=== PATIENT | female | born 1985 | race Caucasian/White ===

== ENCOUNTER 2017-08-01 00:21 | Emergency (ER) | payer OTHER ==
[~2017-08-01] VITALS: Ht 175.3 cm; Wt 111.1 kg
[2017-08-01 00:28] VITALS: BP 154/94
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
[2017-08-01] MEDS ORDERED: LIDOCAINE MPF 1% - **ER/OR** 10 MG/ML VIAL INJ ONE (01:55)
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
[2017-08-01] MEDS ORDERED: KETOROLAC 60 MG/2 ML VIAL IM ONE (02:40)
[2017-08-01 03:14] VITALS: BP 129/81
== END 2017-08-01 03:13 | disposition home or self-care (01) ==
LOC: MED 00:21
DX: S61.512A Laceration without foreign body of left wrist, initial encounter (principal); W26.0XXA Contact with knife, initial encounter; Y93.89 Activity, other specified; Y92.89 Other specified places as the place of occurrence of the external cause; Y99.8 Other external cause status
CPT/HCPCS: 12001; 90471; 90715; 96372; 99284; J1885; J2001